=== PATIENT | male | born 1945 | race Caucasian/White ===

== ENCOUNTER 2016-10-09 11:41 | Inpatient (IN) | payer OTHER ==
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
[~2016-10-09 11:41] MED LIST: ALLEGRA180 PO; ASAB PO; BACTRONASA NAS; CLOBETASOL0.051 TOP; DITRO5 PO; FLONASE NAS; HYDROCHLOROT25 MG PO; LORT7 PO; LOTE40 PO; METAMUCIL CAN7 OZ PO; MEVACOR40 MG PO; MULTIPLE VIT PO; NORV10 PO; PLAVIX PO; PROAIR HFA INH; SPIRIVA INH; ULTRAM50 PO; VISINE TEARS15 ML OP; ZYRTEC ALLGY10 MG PO
[2016-10-09 15:34] LABS: BASOPHILS 0.3 %; BASOPHILS ABSOLUTE 0.03 10/3/uL (0.0-0.16); EOSINOPHILS 1.7 %; EOSINOPHILS ABSOLUTE 0.17 10/3/uL (0.0-0.53); IMMATURE GRANULOCYTES 0.5 %; IMMATURE GRANULOCYTES ABSOLUTE 0.05 10/3/uL (0.0-0.11); LYMPHOCYTES 26.4 %; LYMPHOCYTES ABSOLUTE 2.58 10/3/uL (0.67-4.30); MEAN CORPUS HGB CONC 32.8 g/dL (32.0-36.0); MEAN CORPUSCULAR HEMOGLOB 31.1 pg (26.0-34.0); MEAN CORPUSCULAR VOLUME 94.7 fL (80-100); MEAN PLATELET VOLUME 9.2 fL (9.2-13.0); MONOCYTES 6.9 %; MONOCYTES ABSOLUTE 0.67 10/3/uL (0.21-1.20); NEUTROPHILS 64.2 %; NEUTROPHILS ABSOLUTE 6.26 10/3/uL (2.02-8.40); RBC DISTRIBUTION WIDTH 15.1 % (12.0-16.0); RED CELL COUNT 4.18 10/6/uL (4.7-6.1); WHITE BLOOD CELLS 9.8 10/3/uL (4.5-10.5)
[2016-10-09 15:35] LABS: HEMATOCRIT 39.6 % (40.0-51.0); MANUAL DIFF NO %; PLATELET COUNT 273 10/3/uL (150-400)
[2016-10-09 15:41] LABS: PARTIAL THROMBO TIME 27.3 SEC (22.5-37.2); PROTIME (NOT ORD) 13.3 SEC (12.0-14.5)
[2016-10-09 16:07] LABS: A/G RATIO 0.9 (0.7-1.9); ALBUMIN 3.7 G/DL (3.5-5.0); BUN (BLOOD UREA NITROGEN) 20 MG/DL (6-23); C-REACTIVE PROTEIN 5.2 MG/L (<8.0); CALCIUM, SERUM 9.7 MG/DL (8.5-10.4); CHLORIDE, SERUM 107 MMOL/L (96-112); CO2 (CARBON DIOXIDE) 27 MMOL/L (24-34); CREATININE 1.31 MG/DL (0.70-1.30); FERRITIN 139 NG/ML (26-388); GFR AFRICAN AMERICAN 63 ML/MIN (>=60); GFR NON AFRICAN AMERICAN 54 ML/MIN (>=60); GLOBULIN 4.1 G/DL (2.5-4.1); IRON BINDING CAPACITY 306 MCG/DL (250-450); IRON, SERUM 47 MCG/DL (35-150); PHOSPHORUS, SERUM 2.8 MG/DL (2.5-4.5); POTASSIUM, SERUM 4.1 MMOL/L (3.5-5.3); SGOT(AST) 28 U/L (5-40); SGPT(ALT) 51 U/L (5-65); SODIUM, SERUM 141 MMOL/L (135-148); TOTAL BILIRUBIN 0.5 MG/DL (0-1.2); TOTAL PROTEIN 7.8 G/DL (6.0-8.5)
[2016-10-09 16:09] LABS: ALKALINE PHOSPHATASE 117 U/L (45-117); GLUCOSE, SERUM 135 MG/DL (60-99)
[2016-10-09] MEDS ORDERED: L20 PO (16:42)
[2016-10-09] MEDS ORDERED: ZYRTEC ALLGY10 MG PO (16:42)
[2016-10-09] MEDS ORDERED: LOTE20 PO (16:42)
[2016-10-09] MEDS ORDERED: PCET PO (16:44)
[2016-10-09] MEDS ORDERED: K-TABS10 MEQ PO (16:45)
[2016-10-09] MEDS ORDERED: MEVACOR40 MG PO (16:45)
[2016-10-09] MEDS ORDERED: CALTRA600D PO (16:46)
[2016-10-09] MEDS ORDERED: NORV5 PO (16:46)
[2016-10-09] MEDS ORDERED: MULTIVITAMI1 PO (16:46)
[2016-10-09] MEDS ORDERED: ASAB PO (16:47)
[2016-10-09] MEDS ORDERED: B12100T PO (16:47)
[2016-10-09 16:48] LABS: SED RATE 94 MM/HR (0-15)
[2016-10-10 05:36] LABS: BASOPHILS 0.3 %; BASOPHILS ABSOLUTE 0.03 10/3/uL (0.0-0.16); EOSINOPHILS 1.9 %; EOSINOPHILS ABSOLUTE 0.17 10/3/uL (0.0-0.53); HEMATOCRIT 37.5 % (40.0-51.0); HEMOGLOBIN 12.4 g/dL (13.6-17.8); IMMATURE GRANULOCYTES 0.7 %; IMMATURE GRANULOCYTES ABSOLUTE 0.06 10/3/uL (0.0-0.11); LYMPHOCYTES 27.8 %; LYMPHOCYTES ABSOLUTE 2.46 10/3/uL (0.67-4.30); MEAN CORPUS HGB CONC 33.1 g/dL (32.0-36.0); MEAN CORPUSCULAR HEMOGLOB 31.2 pg (26.0-34.0); MEAN CORPUSCULAR VOLUME 94.5 fL (80-100); MEAN PLATELET VOLUME 9.2 fL (9.2-13.0); MONOCYTES ABSOLUTE 0.71 10/3/uL (0.21-1.20); NEUTROPHILS 61.3 %; NEUTROPHILS ABSOLUTE 5.43 10/3/uL (2.02-8.40); PLATELET COUNT 257 10/3/uL (150-400); RBC DISTRIBUTION WIDTH 14.9 % (12.0-16.0); RED CELL COUNT 3.97 10/6/uL (4.7-6.1); WHITE BLOOD CELLS 8.9 10/3/uL (4.5-10.5)
[2016-10-10 05:37] LABS: MANUAL DIFF NO %
[2016-10-10 05:50] LABS: ALBUMIN 3.1 G/DL (3.5-5.0); BUN (BLOOD UREA NITROGEN) 18 MG/DL (6-23); CALCIUM, SERUM 9.3 MG/DL (8.5-10.4); CHLORIDE, SERUM 109 MMOL/L (96-112); CREATININE 1.22 MG/DL (0.70-1.30); GFR AFRICAN AMERICAN 68 ML/MIN (>=60); GFR NON AFRICAN AMERICAN 59 ML/MIN (>=60); GLUCOSE, SERUM 117 MG/DL (60-99); SODIUM, SERUM 142 MMOL/L (135-148)
[2016-10-10 05:51] LABS: CO2 (CARBON DIOXIDE) 22 MMOL/L (24-34); POTASSIUM, SERUM 4.4 MMOL/L (3.5-5.3)
[2016-10-12 06:55] LABS: BASOPHILS 0.6 %; BASOPHILS ABSOLUTE 0.05 10/3/uL (0.0-0.16); EOSINOPHILS 3.6 %; EOSINOPHILS ABSOLUTE 0.32 10/3/uL (0.0-0.53); HEMOGLOBIN 12.9 g/dL (13.6-17.8); IMMATURE GRANULOCYTES 0.7 %; IMMATURE GRANULOCYTES ABSOLUTE 0.06 10/3/uL (0.0-0.11); LYMPHOCYTES ABSOLUTE 2.37 10/3/uL (0.67-4.30); MEAN CORPUS HGB CONC 33.1 g/dL (32.0-36.0); MEAN CORPUSCULAR HEMOGLOB 31.6 pg (26.0-34.0); MEAN CORPUSCULAR VOLUME 95.6 fL (80-100); MEAN PLATELET VOLUME 9.7 fL (9.2-13.0); MONOCYTES 12.5 %; NEUTROPHILS 55.6 %; NEUTROPHILS ABSOLUTE 4.88 10/3/uL (2.02-8.40); PLATELET COUNT 247 10/3/uL (150-400); RBC DISTRIBUTION WIDTH 15.5 % (12.0-16.0); RED CELL COUNT 4.08 10/6/uL (4.7-6.1); WHITE BLOOD CELLS 8.8 10/3/uL (4.5-10.5)
[2016-10-12 06:58] LABS: MANUAL DIFF NO %
[2016-10-12 07:05] LABS: BUN (BLOOD UREA NITROGEN) 21 MG/DL (6-23); CALCIUM, SERUM 9.6 MG/DL (8.5-10.4); CHLORIDE, SERUM 105 MMOL/L (96-112); CO2 (CARBON DIOXIDE) 24 MMOL/L (24-34); CREATININE 1.33 MG/DL (0.70-1.30); GFR AFRICAN AMERICAN 61 ML/MIN (>=60); GFR NON AFRICAN AMERICAN 53 ML/MIN (>=60); GLUCOSE, SERUM 105 MG/DL (60-99); POTASSIUM, SERUM 4.1 MMOL/L (3.5-5.3); SODIUM, SERUM 138 MMOL/L (135-148)
[2016-10-13 06:21] LABS: BASOPHILS 0.3 %; BASOPHILS ABSOLUTE 0.03 10/3/uL (0.0-0.16); EOSINOPHILS 1.3 %; EOSINOPHILS ABSOLUTE 0.14 10/3/uL (0.0-0.53); HEMATOCRIT 39.3 % (40.0-51.0); IMMATURE GRANULOCYTES 0.3 %; IMMATURE GRANULOCYTES ABSOLUTE 0.03 10/3/uL (0.0-0.11); LYMPHOCYTES 18.6 %; LYMPHOCYTES ABSOLUTE 2.04 10/3/uL (0.67-4.30); MEAN CORPUS HGB CONC 33.1 g/dL (32.0-36.0); MEAN CORPUSCULAR HEMOGLOB 30.8 pg (26.0-34.0); MEAN CORPUSCULAR VOLUME 93.1 fL (80-100); MEAN PLATELET VOLUME 9.3 fL (9.2-13.0); MONOCYTES 9.9 %; MONOCYTES ABSOLUTE 1.09 10/3/uL (0.21-1.20); NEUTROPHILS 69.6 %; NEUTROPHILS ABSOLUTE 7.64 10/3/uL (2.02-8.40); PLATELET COUNT 262 10/3/uL (150-400); RBC DISTRIBUTION WIDTH 15.2 % (12.0-16.0); RED CELL COUNT 4.22 10/6/uL (4.7-6.1)
[2016-10-13 06:22] LABS: MANUAL DIFF NO %
[2016-10-13 06:44] LABS: ALBUMIN 3.4 G/DL (3.5-5.0); CALCIUM, SERUM 9.8 MG/DL (8.5-10.4); CHLORIDE, SERUM 105 MMOL/L (96-112); CO2 (CARBON DIOXIDE) 20 MMOL/L (24-34); GFR AFRICAN AMERICAN 77 ML/MIN (>=60); GFR NON AFRICAN AMERICAN 67 ML/MIN (>=60); GLUCOSE, SERUM 124 MG/DL (60-99); PHOSPHORUS, SERUM 3.1 MG/DL (2.5-4.5); POTASSIUM, SERUM 4.3 MMOL/L (3.5-5.3); SODIUM, SERUM 140 MMOL/L (135-148)
[2016-10-13 06:45] LABS: BUN (BLOOD UREA NITROGEN) 15 MG/DL (6-23)
== END 2016-10-14 20:26 | DRG 504 ==
LOC: 6NO 11:41
PROVIDERS: Internal Medicine; Orthopaedic Surgery Foot and Ankle Surgery
PROC: 0QSN04Z Reposition Right Metatarsal with Internal Fixation Device, Open Approach (ICD-10-PCS; 2016-10-12)
PROC: 0QSN04Z Reposition Right Metatarsal with Internal Fixation Device, Open Approach (ICD-10-PCS; principal; 2016-10-12 13:15)
DX: S93.121A Dislocation of metatarsophalangeal joint of right great toe, initial encounter (principal); S22.20XA Unspecified fracture of sternum, initial encounter for closed fracture; J44.9 Chronic obstructive pulmonary disease, unspecified; S93.124A Dislocation of metatarsophalangeal joint of right lesser toe(s), initial encounter; Z23 Encounter for immunization; E66.9 Obesity, unspecified; I73.9 Peripheral vascular disease, unspecified; V49.9XXA Car occupant (driver) (passenger) injured in unspecified traffic accident, initial encounter; I35.0 Nonrheumatic aortic (valve) stenosis; E78.5 Hyperlipidemia, unspecified; I10 Essential (primary) hypertension; G47.33 Obstructive sleep apnea (adult) (pediatric); S92.811A Other fracture of right foot, initial encounter for closed fracture; Z68.30 Body mass index [BMI] 30.0-30.9, adult; Z85.46 Personal history of malignant neoplasm of prostate; Z95.828 Presence of other vascular implants and grafts; Z90.79 Acquired absence of other genital organ(s); Z87.891 Personal history of nicotine dependence; Z79.82 Long term (current) use of aspirin
CPT/HCPCS: 73610-RT; 73630-RT; 73700-RT; 80048; 80053; 80069; 82728; 83540; 83550; 83735; 84100; 84443; 85025; 85610; 85652; 85730; 86140; 90662; 93925; 93970; 94640; 97161-GP; 97530-GP; A9270-GY; G0008; J0360; J0690; J1170; J2270; J2370; J2405

== ENCOUNTER 2016-12-29 18:29 | Inpatient (IN) | payer OTHER ==
--- NOTE | ~2016-12-29 | HP ---
History And Physical [address] [place]. [address] NAME: DONTA POWELL SR : 44 STATUS : ADM IN [facility]#: [id number] AGE: 71 ADM/REG DATE : 12/29/16 MR#: [id number] REPORT SERV DATE: 12/30/16 DICTATED BY: JUDY FREEMAN DATE: 12/30/16 REPORT STATUS : Draft TRANSCRIBED BY: MODL DATE: 12/30/16 DATE OF ADMISSION: 12/29/2016 CHIEF COMPLAINT: Right foot abscess, wound and right foot pain. HISTORY OF PRESENT ILLNESS: The patient is a 71-year-old male, who was directly admitted and request by Dr. Roe and Dr. Yanez for right foot wound and abscess. The patient was followed by Dr. Roe regarding his right foot wound and infection; however, outpatient treatment has failed and the patient therefore admitted for continue medical management, and surgical intervention of his right foot wound and infection. The patient was seen by Podiatry today and had underwent I and D and skin grafting by Dr. Yanez today. The patient did tolerate this surgical procedure. The patient at this time does not complain of any pain to his foot. The patient reports that he has had use of hydrocodone and oxycodone, but this had caused him to have some nausea. PAST MEDICAL HISTORY: 1. Severe peripheral arterial disease, status post multiple vascular surgery on bilateral lower extremity with the most recent one done on 12/08/2016 with atherectomy/INSOLE AND HEEL STIFFENER/stent of the right SFA by Dr. Roe. 2. History of prostate cancer, status post radical prostatectomy. 3. GERD. 4. Hypertension. 5. COPD. 6. Obstructive sleep apnea, which the patient is noncompliant with CPAP. 7. Hyperlipidemia, uses lovastatin. 8. Edema of the lower extremities especially the right foot secondary to wound. 9. History of anxiety and depression. 10.Hard of hearing bilaterally. SURGICAL HISTORY: 1. History of AOG on 04/14/[address] Roe/INSOLE AND HEEL STIFFENER/stent, left SFA/left EIA/left TOAN/right EIA. 2. AOG on 04/25/[address] Roe/ather/INSOLE AND HEEL STIFFENER/stent of the left SFA/left POP. 3. AOG on 12/18/2016 right distal superficial femoral artery/IVUS catheter/rotational atherectomy, self expanding stent angioplasty. 4. Foot surgery on 10/16/[address] Yi of the right great and first toe pinning. 5. Radical prostatectomy two to three years ago. 6. Hernia repair x2, the last one approximately one to two years ago. SOCIAL HISTORY: The patient is . He has three children/three grandchildren and three great grandchildren. He is retired from [employer]. He is a former smoker, quit 10 years ago. He reports social drinking, but denies any illicit drug use. History And Physical [address] [address] NAME: DONTA POWELL SR : 44 STATUS : ADM IN [facility]#: [id number] AGE: 71 ADM/REG DATE : 12/29/16 MR#: [id number] REPORT SERV DATE: 12/30/16 DICTATED BY: JUDY FREEMAN DATE: 12/30/16 REPORT STATUS : Draft TRANSCRIBED BY: RADHA DATE: 12/30/16 ALLERGIES: 1. DEMEROL CAUSES "MAKES HIM CRAZY.". 2. HYDROCODONE AND OXYCODONE "MAKES HIM SICK TO HIS STOMACH." THE PATIENT REPORTS HE IS OKAY WITH THE USE OF OXYCODONE OR HYDROCODONE WITH ANTIEMETIC DRUG. MEDICATIONS: The patient currently on, 1. Vancomycin 1 g q.12 hours. 2. Aspirin 81 mg p.o. at bedtime. 3. Naprosyn 250 mg p.o. twice a day. 4. Mevacor 40 mg p.o. q.p.m. 5. Levaquin 750 mg p.o. daily. REVIEW OF SYSTEMS: The patient reports he uses prescription glasses, has a history of cataracts in both eyes, but no surgery. Reports hard of hearing bilaterally. The patient denies any complaint of swallowing issue. The patient denies any complaint of shortness of breath. The patient with history of COPD, asthma, and obstructive sleep apnea, and reports does not use his CPAP. The patient denies any chest pain. Denies any nausea or vomiting. The patient denies any history of diabetes or thyroid problems. The patient denies any history of stroke or seizure. The patient reports he walks with a cane, has pain with his right foot secondary to wound and infection. The patient reports he has had several vascular surgeries with Dr. Roe on both of his legs. The patient reports he has been on aspirin and Plavix that was initiated by Dr. Roe. He denies any bleeding problems. The patient reports no pain with his right foot at this time. LABS: On 12/29/2016 with sodium 142, potassium 3.9, chloride 110, CO2 of 24, BUN 23, creatinine 1.18, GFR 61, and glucose of 107. WBC 8.5, hemoglobin 12.6, hematocrit 37.3, and platelet of 273. AST 26, bili 0.4, total protein 7.6, ALT 35, albumin 3.6, and ALP of 100. X-ray of right foot done on 12/30/2016 revealed old fracture deformity at the second toe metatarsophalangeal joint. No definite evidence of acute right foot abnormalities. Right foot wound gram stain, rare WBC, few gram positive cocci in pairs, and rare gram-variable bacilli. Right foot aerobic culture pending. PHYSICAL EXAMINATION: GENERAL: The patient is a pleasant man, in no acute distress noted. The patient is alert and oriented x3. HEENT: Oral mucosa moist. Eyes PERRL. Bilaterally nonicteric. NECK: No JVD. No pain. Moves without any pain. CHEST: No deformity noted. LUNGS: Clear to auscultation bilaterally with symmetrical expansion. No wheezing. CV: Regular rate and rhythm. Normal S1, S2. No murmurs noted. ABDOMEN: Obese, soft, nontender. Bowel sounds x4 quadrants. : Not assessed. EXTREMITIES: No edema on the left lower extremity or bilateral upper extremity. Right lower extremity with dressing dry and intact, secured with surgical boots in use. Left History And Physical [address] [address] NAME: DONTA POWELL SR : 44 STATUS : ADM IN [facility]#: [id number] AGE: 71 ADM/REG DATE : 12/29/16 MR#: [id number] REPORT SERV DATE: 12/30/16 DICTATED BY: JUDY FREEMAN DATE: 12/30/16 REPORT STATUS : Draft TRANSCRIBED BY: MODL DATE: 12/30/16 lower extremity distal pulses palpable. Moves all extremities except limited on the right lower extremity secondary to recent surgery and boots. The patient able to move right toe. Not able to assess the patient gait secondary to the patient nonweightbearing in his right lower extremity. Bilateral upper extremity and right lower extremity with good strength 5/5. ASSESSMENT: 1. Abscess/open wound of the right foot dorsal first metatarsophalangeal joint, status post I and D and skin graft today by Dr. Yanez. 2. Severe peripheral artery disease, status post multiple vascular surgeries of the bilateral lower extremity. Last AOG on 12/08/2016 with the right distal superficial femoral artery by Dr. Roe. 3. Gram positive cocci and gram-variable bacilli of right foot infection. 4. Right foot pain secondary to wound and infection. 5. Hypertension/primary, controlled. 6. History of chronic obstructive pulmonary disease/obstructive sleep apnea. 7. Gait impairment. 8. Gastroesophageal reflux disease. 9. Hyperlipidemia. PLAN: 1. The patient was admitted under Dr. Freeman. Dr. Joseph was consulted, but the patient was seen by Dr. Yanez, who recommended the patient's admission. Dr. Roe is also consulted. The patient has been following Dr. Roe for his history of severe peripheral vascular disease. 2. I reviewed right foot x-ray results and right foot gram stain results. The patient x- ray with no acute abnormality. Gram stain revealed the patient with few gram-positive and some rare gram-variable bacilli. The patient was seen by Dr. Yanez, underwent I and D and skin graft today, which the patient tolerated. The patient was started on vancomycin after cultures were obtained last night in addition of Levaquin was added today for further coverage of the gram-variable bacilli. We will continue to follow wound culture and vital signs. The patient's admission WBC 8.5. The patient is at risk for sepsis. 3. The patient with a history of hypertension. Continue to monitor BP. Continue p.r.n. hydralazine or clonidine for blood pressure control. We will review home meds and resume home med regimen. The patient is at risk for CVA. 4. The patient with history of COPD and obstructive sleep apnea with history of noncompliant with CPAP. We will monitor respiratory rate, encourage use of incentive spirometry. The patient remained at room air. We will minimize sedating agent. The patient is at risk for COPD exacerbation or hypoxia. 5. The patient currently nonweightbearing of the right lower extremity. We will wait for Podiatry's clearance prior to referring the patient to PT. The patient is at risk for fall. 6. We will initiate DVT prophylaxis with Lovenox. The patient is at risk for DVT. 7. We will continue other home med regimen to include statin. 8. We will discontinue oxycodone and given the patient having side effect of nausea. We will try the patient on low-dose Dilaudid p.o. and monitor respiratory rate. The History And Physical [address] [address] NAME: DONTA POWELL SR : 44 STATUS : ADM IN PAT#: [id number] AGE: 71 ADM/REG DATE : 12/29/16 MR#: [id number] REPORT SERV DATE: 12/30/16 DICTATED BY: JUDY FREEMAN DATE: 12/30/16 REPORT STATUS : Draft TRANSCRIBED BY: MODL DATE: 12/30/16 patient is at risk for over-sedation/hypoxia. 9. Code status addressed with the patient. The patient desires full code. POLST form completed and placed in chart. DICTATED BY: Rabia Lloyd NP CLP/MODL Judy Freeman M.D. / [id number] CC: Praneeth Reina M.D.
[~2016-12-29 18:29] MED LIST changes: +B12100T PO; +CALTRA600D PO; +K-TABS10 MEQ PO; +L20 PO; +LOTE20 PO; +MULTIVITAMI1 PO; +NORV5 PO; +PCET PO
[2016-12-29] MEDS ORDERED: LOTE10 PO (21:15)
[2016-12-29] MEDS ORDERED: NORV10 PO (21:15)
[2016-12-29] MEDS ORDERED: MEVACOR40 MG PO (21:15)
[2016-12-29] MEDS ORDERED: L20 PO (21:16)
[2016-12-29] MEDS ORDERED: ZYRTEC ALLGY10 MG PO (21:16)
[2016-12-29] MEDS ORDERED: ASAB PO (21:16)
[2016-12-29] MEDS ORDERED: PLAVIX PO (21:17)
[2016-12-29] MEDS ORDERED: FLONASE NAS (21:18)
[2016-12-29] MEDS ORDERED: ALEVE220 MG PO (21:19)
[2016-12-29] MEDS ORDERED: PROAIR HFA INH (21:19)
[2016-12-29] MEDS ORDERED: KLOR-CON M2020 MEQ PO (21:20)
[2016-12-29] MEDS ORDERED: CALTRA600D PO (21:21)
[2016-12-29] MEDS ORDERED: VITAMIN B-12 PO (21:22)
[2016-12-29] MEDS ORDERED: CIP2 PO (21:25)
[2016-12-29] MEDS ORDERED: AYR NAS (21:25)
[2016-12-29] MEDS ORDERED: REFRESH OPH (21:26)
[2016-12-29] MEDS ORDERED: CLOTRIM/BETA TOP (21:30)
[2016-12-29 21:43] LABS: BASOPHILS 0.6 %; BASOPHILS ABSOLUTE 0.05 10/3/uL (0.0-0.16); EOSINOPHILS 3.8 %; EOSINOPHILS ABSOLUTE 0.32 10/3/uL (0.0-0.53); HEMATOCRIT 37.3 % (40.0-51.0); HEMOGLOBIN 12.6 g/dL (13.6-17.8); IMMATURE GRANULOCYTES 0.4 %; IMMATURE GRANULOCYTES ABSOLUTE 0.03 10/3/uL (0.0-0.11); LYMPHOCYTES 29.3 %; LYMPHOCYTES ABSOLUTE 2.48 10/3/uL (0.67-4.30); MEAN CORPUS HGB CONC 33.8 g/dL (32.0-36.0); MEAN CORPUSCULAR HEMOGLOB 31.5 pg (26.0-34.0); MEAN CORPUSCULAR VOLUME 93.3 fL (80-100); MEAN PLATELET VOLUME 9.5 fL (9.2-13.0); MONOCYTES 9.8 %; MONOCYTES ABSOLUTE 0.83 10/3/uL (0.21-1.20); NEUTROPHILS 56.1 %; NEUTROPHILS ABSOLUTE 4.75 10/3/uL (2.02-8.40); PLATELET COUNT 273 10/3/uL (150-400); RBC DISTRIBUTION WIDTH 14.5 % (12.0-16.0); WHITE BLOOD CELLS 8.5 10/3/uL (4.5-10.5)
[2016-12-29 21:44] LABS: MANUAL DIFF NO %
[2016-12-29 22:02] LABS: A/G RATIO 0.9 (0.7-1.9); ALBUMIN 3.6 G/DL (3.5-5.0); ALKALINE PHOSPHATASE 100 U/L (45-117); BUN (BLOOD UREA NITROGEN) 23 MG/DL (6-23); CALCIUM, SERUM 9.5 MG/DL (8.5-10.4); CHLORIDE, SERUM 110 MMOL/L (96-112); CO2 (CARBON DIOXIDE) 24 MMOL/L (24-34); CREATININE 1.18 MG/DL (0.70-1.30); GFR AFRICAN AMERICAN 71 ML/MIN (>=60); GFR NON AFRICAN AMERICAN 61 ML/MIN (>=60); GLUCOSE, SERUM 107 MG/DL (60-99); POTASSIUM, SERUM 3.9 MMOL/L (3.5-5.3); SGOT(AST) 26 U/L (5-40); SGPT(ALT) 35 U/L (5-65); SODIUM, SERUM 142 MMOL/L (135-148); TOTAL BILIRUBIN 0.4 MG/DL (0-1.2); TOTAL PROTEIN 7.6 G/DL (6.0-8.5)
[2016-12-31 05:20] LABS: BASOPHILS 0.6 %; BASOPHILS ABSOLUTE 0.04 10/3/uL (0.0-0.16); EOSINOPHILS ABSOLUTE 0.27 10/3/uL (0.0-0.53); HEMATOCRIT 35.8 % (40.0-51.0); HEMOGLOBIN 11.9 g/dL (13.6-17.8); IMMATURE GRANULOCYTES 0.4 %; IMMATURE GRANULOCYTES ABSOLUTE 0.03 10/3/uL (0.0-0.11); LYMPHOCYTES 22.8 %; LYMPHOCYTES ABSOLUTE 1.55 10/3/uL (0.67-4.30); MEAN CORPUS HGB CONC 33.2 g/dL (32.0-36.0); MEAN PLATELET VOLUME 9.6 fL (9.2-13.0); MONOCYTES 10.6 %; MONOCYTES ABSOLUTE 0.72 10/3/uL (0.21-1.20); NEUTROPHILS 61.6 %; NEUTROPHILS ABSOLUTE 4.19 10/3/uL (2.02-8.40); PLATELET COUNT 235 10/3/uL (150-400); RBC DISTRIBUTION WIDTH 14.5 % (12.0-16.0); RED CELL COUNT 3.72 10/6/uL (4.7-6.1); WHITE BLOOD CELLS 6.8 10/3/uL (4.5-10.5)
[2016-12-31 05:21] LABS: MANUAL DIFF NO %; MEAN CORPUSCULAR VOLUME 96.2 fL (80-100)
[2016-12-31 05:34] LABS: BUN (BLOOD UREA NITROGEN) 16 MG/DL (6-23); CHLORIDE, SERUM 109 MMOL/L (96-112); CO2 (CARBON DIOXIDE) 24 MMOL/L (24-34); CREATININE 1.15 MG/DL (0.70-1.30); GFR AFRICAN AMERICAN 73 ML/MIN (>=60); GFR NON AFRICAN AMERICAN 63 ML/MIN (>=60); GLUCOSE, SERUM 147 MG/DL (60-99); POTASSIUM, SERUM 3.7 MMOL/L (3.5-5.3); SODIUM, SERUM 141 MMOL/L (135-148)
[2017-01-01] MEDS ORDERED: LEVAQUIN750 MG PO (14:41)
[2017-01-01] MEDS ORDERED: ULTRAM50 PO (14:47)
== END 2017-01-01 18:00 | disposition home or self-care (01) | DRG 264 ==
LOC: 2SO 18:29
PROVIDERS: Family Medicine; Nurse Practitioner Family; Podiatrist
PROC: 0HRMXK3 Replacement of Right Foot Skin with Nonautologous Tissue Substitute, Full Thickness, External Approach (ICD-10-PCS; 2016-12-30)
PROC: 0KBV0ZZ Excision of Right Foot Muscle, Open Approach (ICD-10-PCS; 2016-12-30)
PROC: 0H9MXZZ Drainage of Right Foot Skin, External Approach (ICD-10-PCS; principal; 2016-12-30 11:15)
DX: E11.51 Type 2 diabetes mellitus with diabetic peripheral angiopathy without gangrene (principal); L97.412 Non-pressure chronic ulcer of right heel and midfoot with fat layer exposed; J44.9 Chronic obstructive pulmonary disease, unspecified; L02.611 Cutaneous abscess of right foot; L97.513 Non-pressure chronic ulcer of other part of right foot with necrosis of muscle; K21.9 Gastro-esophageal reflux disease without esophagitis; I10 Essential (primary) hypertension; G47.33 Obstructive sleep apnea (adult) (pediatric); F41.9 Anxiety disorder, unspecified; E78.5 Hyperlipidemia, unspecified; F32.9 Major depressive disorder, single episode, unspecified; H91.90 Unspecified hearing loss, unspecified ear; R26.89 Other abnormalities of gait and mobility; H26.9 Unspecified cataract; B95.2 Enterococcus as the cause of diseases classified elsewhere; K59.00 Constipation, unspecified; Z85.46 Personal history of malignant neoplasm of prostate; Z91.19 Patient's noncompliance with other medical treatment and regimen; Z88.5 Allergy status to narcotic agent; Z98.890 Other specified postprocedural states; Z87.891 Personal history of nicotine dependence
CPT/HCPCS: 73630-RT; 80048; 80053; 85025; 87040; 87070; 87075; 87077; 87186; 87205; 93005; 97161-GP; A9270-GY; J2250; J2370; J2405; J3010; J3370; Q4125

== ENCOUNTER 2017-01-05 23:06 | Emergency (ER) | payer OTHER ==
[~2017-01-05 23:06] MED LIST changes: +ALEVE220 MG PO; +AYR NAS; +CIP2 PO; +CLOTRIM/BETA TOP; +KLOR-CON M2020 MEQ PO; +LEVAQUIN750 MG PO; +LOTE10 PO; +REFRESH OPH; +VITAMIN B-12 PO
[2017-01-05 23:13] LABS: BASOPHILS 0.6 %; BASOPHILS ABSOLUTE 0.05 10/3/uL (0.0-0.16); EOSINOPHILS 3.5 %; EOSINOPHILS ABSOLUTE 0.27 10/3/uL (0.0-0.53); HEMOGLOBIN 13.4 g/dL (13.6-17.8); IMMATURE GRANULOCYTES 0.4 %; IMMATURE GRANULOCYTES ABSOLUTE 0.03 10/3/uL (0.0-0.11); LYMPHOCYTES ABSOLUTE 2.34 10/3/uL (0.67-4.30); MEAN CORPUS HGB CONC 33.6 g/dL (32.0-36.0); MEAN CORPUSCULAR HEMOGLOB 32.1 pg (26.0-34.0); MEAN CORPUSCULAR VOLUME 95.5 fL (80-100); MEAN PLATELET VOLUME 9.6 fL (9.2-13.0); MONOCYTES 9.9 %; MONOCYTES ABSOLUTE 0.77 10/3/uL (0.21-1.20); NEUTROPHILS 55.6 %; NEUTROPHILS ABSOLUTE 4.34 10/3/uL (2.02-8.40); PLATELET COUNT 264 10/3/uL (150-400); RBC DISTRIBUTION WIDTH 14.3 % (12.0-16.0); RED CELL COUNT 4.18 10/6/uL (4.7-6.1); WHITE BLOOD CELLS 7.8 10/3/uL (4.5-10.5)
[2017-01-05 23:16] LABS: ER CBC TAT 0 Hrs 08 MinsNP; HEMATOCRIT 39.9 % (40.0-51.0); MANUAL DIFF NO %
[2017-01-05 23:34] LABS: CALCIUM, SERUM 9.9 MG/DL (8.5-10.4); CHLORIDE, SERUM 108 MMOL/L (96-112); CO2 (CARBON DIOXIDE) 26 MMOL/L (24-34); CREATININE 1.46 MG/DL (0.70-1.30); GFR AFRICAN AMERICAN 55 ML/MIN (>=60); GFR NON AFRICAN AMERICAN 47 ML/MIN (>=60); POTASSIUM, SERUM 4.2 MMOL/L (3.5-5.3); SODIUM, SERUM 141 MMOL/L (135-148)
[2017-01-05 23:37] LABS: BUN (BLOOD UREA NITROGEN) 22 MG/DL (6-23); GLUCOSE, SERUM 93 MG/DL (60-99)
[2017-01-05 23:38] LABS: LACTATE 1.5 MMOL/L (0.3-2.4)
[2017-01-06 00:37] LABS: PROCALCITONIN 0.07 ng/mL (<0.5)
== END 2017-01-06 02:10 | disposition home or self-care (01) ==
LOC: ER 23:06
PROVIDERS: Emergency Medicine
DX: T86.821 Skin graft (allograft) (autograft) failure (principal); L53.9 Erythematous condition, unspecified; R60.0 Localized edema; J44.9 Chronic obstructive pulmonary disease, unspecified; I10 Essential (primary) hypertension; G47.30 Sleep apnea, unspecified; K21.9 Gastro-esophageal reflux disease without esophagitis; F32.9 Major depressive disorder, single episode, unspecified; F41.9 Anxiety disorder, unspecified; Z88.5 Allergy status to narcotic agent; Z79.82 Long term (current) use of aspirin; Z79.899 Other long term (current) drug therapy; Z87.891 Personal history of nicotine dependence
CPT/HCPCS: 80048; 83605; 84145; 85025; 87040; 93971; 96365; 99284; J3370